=== PATIENT | female | born 1940 | race African-American/Black ===

== ENCOUNTER 2021-02-17 05:05 | Inpatient (IN) | payer OTHER ==
[2021-02-16 15:57] VITALS: BMI 36.9
[2021-02-17] MEDS ORDERED: ACETAMINOPHEN INJECTION 100 ML IVPB ONE (13:51)
[2021-02-17] MEDS ORDERED: DEXMEDETOMIDINE HCL 200 MCG/2 ML IVPB ONE (13:51)
[2021-02-17] MEDS ORDERED: LIDOCAINE 1%/EPI 1:100000 (20 ML MULTI DOSE VIAL) ONE (13:58)
[2021-02-17] MEDS ORDERED: BUPIVACAINE HCL/PF 0.25% (2.5MG/ML) 10 ML VIAL ONE (13:58)
[2021-02-17] MEDS ORDERED: GENTAMICIN SO4 80 MG/2 ML VIAL ONE (14:05)
[2021-02-17] MEDS ORDERED: LIDOCAINE HCL 2% JELLY (5 ML/TUBE) ONE (14:08)
[2021-02-17] MEDS ORDERED: ceFAZolin SODIUM 1 GM VIAL ONE (14:08)
[2021-02-17] MEDS ORDERED: PROPOFOL 20 ML ONE (14:11)
[2021-02-17] MEDS ORDERED: ETOMIDATE 20 MG/10 ML AMPUL IVPUSH ONE (14:11)
[2021-02-17] MEDS ORDERED: SUCCINYLCHOLINE CHLORIDE 200 MG/10 ML SYRINGE ONE (14:14)
[2021-02-17] MEDS ORDERED: ceFAZolin SODIUM 1 GM VIAL IVPB ONE (14:20)
[2021-02-17] MEDS ORDERED: LIDOCAINE 1%/EPI 1:100000 (20 ML MULTI DOSE VIAL) IJ ONE (14:44)
[2021-02-17] MEDS ORDERED: BUPIVACAINE HCL/PF 0.25% (2.5MG/ML) 10 ML VIAL IJ ONE (14:44)
[2021-02-17] MEDS ORDERED: BACITRACIN 15 GM TUBE TOPICAL OINTMENT ONE (15:34)
[2021-02-17] MEDS ORDERED: ONDANSETRON 4 MG/2 ML VIAL IVPUSH PRN (15:58)
[2021-02-17] MEDS ORDERED: LACTATED RINGERS SOLUTION 1,000 ML IV SCH (16:00)
[2021-02-17] MEDS ORDERED: MECLIZINE HCL 25 MG TABLET (FP) PO PRN (16:00)
[2021-02-17] MEDS ORDERED: HYDROmorphone HCl 2 MG/ML VIAL IVPUSH PRN ×2 (16:00)
[2021-02-17] MEDS: FAMOTIDINE 20 MG TABLET PO SCH (22:26)
[2021-02-17] MEDS: ROSUVASTATIN CA 20 MG TABLET (FP) PO SCH (22:26)
[2021-02-17] MEDS: RIVAROXABAN 20 MG TABLET PO SCH (22:26)
[2021-02-17] MEDS: DONEPEZIL HCL 10 MG TABLET (FP) PO SCH (22:26)
[2021-02-17] MEDS: ACETAMINOPHEN 325 MG TABLET (FP) PO PRN (22:27)
[2021-02-17] MEDS: CEFAZOLIN 2 GM in DEXTROSE 5%-WATER - 100 ML IVPB SCH (22:28)
[2021-02-17] MEDS: MONTELUKAST NA 10 MG TABLET PO SCH (22:28)
[2021-02-18] MEDS: oxyCODONE HCL 5 MG TABLET PO PRN ×3 (02:23→20:57)
[2021-02-18] MEDS: CEFAZOLIN 2 GM in DEXTROSE 5%-WATER - 100 ML IVPB SCH ×2 (07:00→14:07)
[2021-02-18] MEDS ORDERED: PROPOFOL 20 ML ONE (07:26)
[2021-02-18] MEDS ORDERED: SUCCINYLCHOLINE CHLORIDE 200 MG/10 ML SYRINGE ONE (07:26)
[2021-02-18] MEDS ORDERED: RIVAROXABAN 20 MG TABLET PO SCH (10:00)
[2021-02-18] MEDS ORDERED: FAMOTIDINE 20 MG TABLET PO SCH (10:00)
[2021-02-18] MEDS: CHOLECALCIFEROL (VIT D3) 1,000 UNIT (25 MCG) TABLET PO SCH (10:29)
[2021-02-18] MEDS: FUROSEMIDE 40 MG TABLET (FP) PO SCH (10:29)
[2021-02-18] MEDS: MULTIVITAMINS (DAILY MVI) TABLET (FP) PO SCH (10:29)
[2021-02-18] MEDS: OXYBUTYNIN CHLORIDE 5 MG TABLET PO SCH (10:30)
[2021-02-18] MEDS: SIMETHICONE 80 MG TAB.CHEW (FP) PO SCH (10:30)
[2021-02-18 10:32] LABS: HEMATOCRIT 36.9 % (32.4-45.2); HEMOGLOBIN 12.3 GM/dL (10.7-15.3); MCH 30.5 pg (25.7-33.7); MCHC 33.4 g/dl (32.0-36.0); MEAN CELL VOLUME 91.5 fl (80-96); MEAN PLT VOLUME 10.5 fl (7.5-11.1); PLATELET COUNT 98 10^3/uL (134-434); RBC 4.03 M/mm3 (3.60-5.2); RDW 13.5 % (11.6-15.6); WHITE BLOOD COUNT 4.9 K/mm3 (4.0-10.0)
[2021-02-18 12:10] LABS: CALCIUM 9.5 mg/dL (8.5-10.1)
[2021-02-18 12:11] LABS: MAGNESIUM 2.2 mg/dL (1.8-2.4)
[2021-02-18 12:14] LABS: CREATININE 0.7 mg/dL (0.55-1.3); PHOSPHOROUS 2.7 mg/dL (2.5-4.9)
[2021-02-18 12:18] LABS: BLOOD UREA NITROGEN 8.4 mg/dL (7-18)
[2021-02-18] MEDS ORDERED: PT OWN MED DRAWER 7, Y5N ONE (13:47)
[2021-02-18] MEDS: NYSTATIN POWDER 100,000 UNITS/GM - 15 GM TOPICAL POWDER TP SCH ×2 (14:19→20:59)
[2021-02-18] MEDS: RIVAROXABAN 20 MG TABLET PO SCH (17:43)
[2021-02-18] MEDS: MONTELUKAST NA 10 MG TABLET PO SCH (20:59)
[2021-02-18] MEDS: DONEPEZIL HCL 10 MG TABLET (FP) PO SCH (20:59)
[2021-02-18] MEDS: ROSUVASTATIN CA 20 MG TABLET (FP) PO SCH (20:59)
[2021-02-18] MEDS: FAMOTIDINE 20 MG TABLET PO SCH (20:59)
[2021-02-19] MEDS: oxyCODONE HCL 5 MG TABLET PO PRN ×2 (06:14→21:12)
[2021-02-19 09:57] LABS: BASO % 0.3 % (0-2.0); EOS % 1.1 % (0-4.5); HEMATOCRIT 37.4 % (32.4-45.2); HEMOGLOBIN 12.5 GM/dL (10.7-15.3); LYMPH % 24.3 % (8-40); MCH 30.5 pg (25.7-33.7); MCHC 33.6 g/dl (32.0-36.0); MEAN CELL VOLUME 90.9 fl (80-96); MEAN PLT VOLUME 10.2 fl (7.5-11.1); NEUT % 64.3 % (42.8-82.8); PLATELET COUNT 99 10^3/uL (134-434); RBC 4.11 M/mm3 (3.60-5.2); RDW 13.4 % (11.6-15.6); WHITE BLOOD COUNT 5.9 K/mm3 (4.0-10.0)
[2021-02-19] MEDS: SIMETHICONE 80 MG TAB.CHEW (FP) PO SCH (10:09)
[2021-02-19] MEDS: MULTIVITAMINS (DAILY MVI) TABLET (FP) PO SCH (10:09)
[2021-02-19] MEDS: FUROSEMIDE 40 MG TABLET (FP) PO SCH (10:09)
[2021-02-19] MEDS: NYSTATIN POWDER 100,000 UNITS/GM - 15 GM TOPICAL POWDER TP SCH ×2 (10:10→21:14)
[2021-02-19] MEDS: CHOLECALCIFEROL (VIT D3) 1,000 UNIT (25 MCG) TABLET PO SCH (10:10)
[2021-02-19] MEDS: OXYBUTYNIN CHLORIDE 5 MG TABLET PO SCH (10:10)
[2021-02-19 10:26] LABS: CALCIUM 9.5 mg/dL (8.5-10.1)
[2021-02-19 10:27] LABS: ALBUMIN 2.7 g/dl (3.4-5.0); BLOOD UREA NITROGEN 12.1 mg/dL (7-18); MAGNESIUM 2.3 mg/dL (1.8-2.4)
[2021-02-19 10:30] LABS: CREATININE 0.6 mg/dL (0.55-1.3)
[2021-02-19 10:31] LABS: BILIRUBIN,TOTAL 0.4 mg/dL (0.2-1); TOT PROT 6.9 g/dl (6.4-8.2)
[2021-02-19] MEDS: RIVAROXABAN 20 MG TABLET PO SCH (17:18)
[2021-02-19] MEDS: FAMOTIDINE 20 MG TABLET PO SCH (21:12)
[2021-02-19] MEDS: MONTELUKAST NA 10 MG TABLET PO SCH (21:12)
[2021-02-19] MEDS: ROSUVASTATIN CA 20 MG TABLET (FP) PO SCH (21:12)
[2021-02-19] MEDS: DONEPEZIL HCL 10 MG TABLET (FP) PO SCH (21:12)
[2021-02-20] MEDS: ACETAMINOPHEN 325 MG TABLET (FP) PO PRN (05:34)
[2021-02-20] MEDS ORDERED: PT OWN MED DRAWER 7, Y5N ONE ×5 (09:25→16:56)
[2021-02-20 09:35] LABS: BASO % 0.3 % (0-2.0); EOS % 0.3 % (0-4.5); HEMATOCRIT 38.4 % (32.4-45.2); MEAN CELL VOLUME 91.2 fl (80-96); MONO % 12.1 % (3.8-10.2); NEUT % 71.3 % (42.8-82.8); PLATELET COUNT 108 10^3/uL (134-434); RBC 4.21 M/mm3 (3.60-5.2); RDW 13.2 % (11.6-15.6)
[2021-02-20] MEDS ORDERED: PIPERACILLIN/TAZOB 3.375 GM 3.375 GM in DEXTROSE 5%-WATER - 50 ML IVPB SCH (10:00)
[2021-02-20] MEDS: CEFAZOLIN 2 GM in DEXTROSE 5%-WATER - 100 ML IVPB SCH ×2 (10:25→18:25)
[2021-02-20] MEDS: OXYBUTYNIN CHLORIDE 5 MG TABLET PO SCH (10:26)
[2021-02-20] MEDS: MULTIVITAMINS (DAILY MVI) TABLET (FP) PO SCH (10:26)
[2021-02-20] MEDS: CHOLECALCIFEROL (VIT D3) 1,000 UNIT (25 MCG) TABLET PO SCH (10:26)
[2021-02-20] MEDS: SIMETHICONE 80 MG TAB.CHEW (FP) PO SCH (10:27)
[2021-02-20] MEDS: FUROSEMIDE 40 MG TABLET (FP) PO SCH (10:27)
[2021-02-20] MEDS: NYSTATIN POWDER 100,000 UNITS/GM - 15 GM TOPICAL POWDER TP SCH ×2 (10:28→21:04)
[2021-02-20 10:29] LABS: CALCIUM 9.7 mg/dL (8.5-10.1)
[2021-02-20 10:30] LABS: ALBUMIN 2.4 g/dl (3.4-5.0); BLOOD UREA NITROGEN 12.7 mg/dL (7-18)
[2021-02-20 10:31] LABS: MAGNESIUM 2.1 mg/dL (1.8-2.4)
[2021-02-20 10:33] LABS: CREATININE 0.7 mg/dL (0.55-1.3)
[2021-02-20 10:35] LABS: BILIRUBIN,TOTAL 0.6 mg/dL (0.2-1); TOT PROT 7.1 g/dl (6.4-8.2)
[2021-02-20] MEDS: oxyCODONE HCL 5 MG TABLET PO PRN ×2 (16:22→22:45)
[2021-02-20] MEDS: RIVAROXABAN 20 MG TABLET PO SCH (18:25)
[2021-02-20] MEDS ORDERED: DEXTROSE 5%-WATER 100 ML IVPB ONE (20:43)
[2021-02-20] MEDS: CEFTRIAXONE 2 GM in DEXTROSE 5%-WATER 2 GM/100 ML BAG IVPB SCH (20:56)
[2021-02-20] MEDS: MONTELUKAST NA 10 MG TABLET PO SCH (21:04)
[2021-02-20] MEDS: FAMOTIDINE 20 MG TABLET PO SCH (21:04)
[2021-02-20] MEDS: ROSUVASTATIN CA 20 MG TABLET (FP) PO SCH (21:04)
[2021-02-20] MEDS: DONEPEZIL HCL 10 MG TABLET (FP) PO SCH (21:04)
[2021-02-21] MEDS ORDERED: DEXTROSE 5%-WATER 100 ML IVPB ONE (09:19)
[2021-02-21] MEDS: CEFTRIAXONE 2 GM in DEXTROSE 5%-WATER 2 GM/100 ML BAG IVPB SCH (09:57)
[2021-02-21 10:19] LABS: BASO % 0.1 % (0-2.0); EOS % 0.2 % (0-4.5); HEMATOCRIT 36.1 % (32.4-45.2); HEMOGLOBIN 12.2 GM/dL (10.7-15.3); LYMPH % 16.2 % (8-40); MCH 30.4 pg (25.7-33.7); MCHC 33.9 g/dl (32.0-36.0); MEAN CELL VOLUME 89.7 fl (80-96); MEAN PLT VOLUME 9.8 fl (7.5-11.1); MONO % 14.9 % (3.8-10.2); NEUT % 68.6 % (42.8-82.8); PLATELET COUNT 115 10^3/uL (134-434); RBC 4.03 M/mm3 (3.60-5.2); RDW 13.2 % (11.6-15.6); WHITE BLOOD COUNT 7.4 K/mm3 (4.0-10.0)
[2021-02-21 10:46] LABS: CALCIUM 9.9 mg/dL (8.5-10.1)
[2021-02-21 10:47] LABS: ALBUMIN 2.5 g/dl (3.4-5.0); BLOOD UREA NITROGEN 18.4 mg/dL (7-18); MAGNESIUM 2.3 mg/dL (1.8-2.4)
[2021-02-21 10:50] LABS: CREATININE 0.8 mg/dL (0.55-1.3)
[2021-02-21 10:51] LABS: TOT PROT 7.2 g/dl (6.4-8.2)
[2021-02-21 10:52] LABS: BILIRUBIN,TOTAL 0.5 mg/dL (0.2-1)
[2021-02-21] MEDS: FUROSEMIDE 40 MG TABLET (FP) PO SCH (11:14)
[2021-02-21] MEDS: CHOLECALCIFEROL (VIT D3) 1,000 UNIT (25 MCG) TABLET PO SCH (11:14)
[2021-02-21] MEDS: OXYBUTYNIN CHLORIDE 5 MG TABLET PO SCH (11:15)
[2021-02-21] MEDS: SIMETHICONE 80 MG TAB.CHEW (FP) PO SCH (11:15)
[2021-02-21] MEDS: NYSTATIN POWDER 100,000 UNITS/GM - 15 GM TOPICAL POWDER TP SCH ×2 (11:15→22:42)
[2021-02-21] MEDS: MULTIVITAMINS (DAILY MVI) TABLET (FP) PO SCH (11:15)
[2021-02-21] MEDS: ACETAMINOPHEN 500 MG TABLET (FP) PO SCH ×2 (17:23→22:43)
[2021-02-21] MEDS: RIVAROXABAN 20 MG TABLET PO SCH (17:24)
[2021-02-21] MEDS: DONEPEZIL HCL 10 MG TABLET (FP) PO SCH (22:42)
[2021-02-21] MEDS: POLYETHYLENE GLYCOL (HEALTHYLAX) 3350 17 GM PACKET PO SCH (22:42)
[2021-02-21] MEDS: ROSUVASTATIN CA 20 MG TABLET (FP) PO SCH (22:42)
[2021-02-21] MEDS: DOCUSATE SODIUM 100 MG CAPSULE (FP) PO SCH (22:42)
[2021-02-21] MEDS: MONTELUKAST NA 10 MG TABLET PO SCH (22:43)
[2021-02-21] MEDS: FAMOTIDINE 20 MG TABLET PO SCH (22:43)
[2021-02-22] MEDS: oxyCODONE HCL 5 MG TABLET PO PRN ×2 (00:39→19:45)
[2021-02-22] MEDS: ACETAMINOPHEN 500 MG TABLET (FP) PO SCH ×3 (05:47→22:28)
[2021-02-22 09:12] LABS: BASO % 0.7 % (0-2.0); EOS % 1.2 % (0-4.5); HEMATOCRIT 35.7 % (32.4-45.2); LYMPH % 22.2 % (8-40); MCH 30.4 pg (25.7-33.7); MCHC 33.7 g/dl (32.0-36.0); MEAN CELL VOLUME 90.1 fl (80-96); MONO % 13.5 % (3.8-10.2); NEUT % 62.4 % (42.8-82.8); PLATELET COUNT 135 10^3/uL (134-434); RBC 3.96 M/mm3 (3.60-5.2); RDW 13.4 % (11.6-15.6); WHITE BLOOD COUNT 5.8 K/mm3 (4.0-10.0)
[2021-02-22 09:38] LABS: ALBUMIN 2.3 g/dl (3.4-5.0); MAGNESIUM 2.4 mg/dL (1.8-2.4)
[2021-02-22 09:41] LABS: CREATININE 0.7 mg/dL (0.55-1.3)
[2021-02-22 09:42] LABS: BILIRUBIN,TOTAL 0.5 mg/dL (0.2-1); TOT PROT 7.3 g/dl (6.4-8.2)
[2021-02-22] MEDS: POLYETHYLENE GLYCOL (HEALTHYLAX) 3350 17 GM PACKET PO SCH ×2 (11:00→22:29)
[2021-02-22] MEDS ORDERED: DEXTROSE 5%-WATER 100 ML IVPB ONE (11:20)
[2021-02-22] MEDS: CEFTRIAXONE 2 GM in DEXTROSE 5%-WATER 2 GM/100 ML BAG IVPB SCH (12:13)
[2021-02-22] MEDS: FUROSEMIDE 40 MG TABLET (FP) PO SCH (12:14)
[2021-02-22] MEDS: OXYBUTYNIN CHLORIDE 5 MG TABLET PO SCH (12:15)
[2021-02-22] MEDS: SIMETHICONE 80 MG TAB.CHEW (FP) PO SCH (12:15)
[2021-02-22] MEDS: MULTIVITAMINS (DAILY MVI) TABLET (FP) PO SCH (12:15)
[2021-02-22] MEDS: CHOLECALCIFEROL (VIT D3) 1,000 UNIT (25 MCG) TABLET PO SCH (12:15)
[2021-02-22] MEDS: NYSTATIN POWDER 100,000 UNITS/GM - 15 GM TOPICAL POWDER TP SCH ×2 (12:17→22:30)
[2021-02-22] MEDS: RIVAROXABAN 20 MG TABLET PO SCH (17:40)
[2021-02-22] MEDS: MONTELUKAST NA 10 MG TABLET PO SCH (22:28)
[2021-02-22] MEDS: DONEPEZIL HCL 10 MG TABLET (FP) PO SCH (22:29)
[2021-02-22] MEDS: DOCUSATE SODIUM 100 MG CAPSULE (FP) PO SCH (22:29)
[2021-02-22] MEDS: ROSUVASTATIN CA 20 MG TABLET (FP) PO SCH (22:29)
[2021-02-22] MEDS: FAMOTIDINE 20 MG TABLET PO SCH (22:29)
[2021-02-23] MEDS: NYSTATIN POWDER 100,000 UNITS/GM - 15 GM TOPICAL POWDER TP SCH ×5 (00:37→21:13)
[2021-02-23] MEDS: ACETAMINOPHEN 500 MG TABLET (FP) PO SCH ×3 (06:03→21:12)
[2021-02-23] MEDS ORDERED: SENNOSIDES 8.6MG TABLET (FP) PO ONE (06:20)
[2021-02-23] MEDS ORDERED: DEXTROSE 5%-WATER 100 ML IVPB ONE (09:50)
[2021-02-23] MEDS: FUROSEMIDE 40 MG TABLET (FP) PO SCH (12:00)
[2021-02-23] MEDS: OXYBUTYNIN CHLORIDE 5 MG TABLET PO SCH (12:00)
[2021-02-23] MEDS: MULTIVITAMINS (DAILY MVI) TABLET (FP) PO SCH (12:00)
[2021-02-23] MEDS: CHOLECALCIFEROL (VIT D3) 1,000 UNIT (25 MCG) TABLET PO SCH (12:00)
[2021-02-23] MEDS: POLYETHYLENE GLYCOL (HEALTHYLAX) 3350 17 GM PACKET PO SCH ×2 (12:01→21:13)
[2021-02-23] MEDS: SIMETHICONE 80 MG TAB.CHEW (FP) PO SCH (12:01)
[2021-02-23] MEDS: CEFTRIAXONE 2 GM in DEXTROSE 5%-WATER 2 GM/100 ML BAG IVPB SCH (12:02)
[2021-02-23] MEDS ORDERED: BISACODYL 10 MG SUPP.RECT PR ONE (12:29)
[2021-02-23] MEDS: RIVAROXABAN 20 MG TABLET PO SCH (17:36)
[2021-02-23] MEDS: DONEPEZIL HCL 10 MG TABLET (FP) PO SCH (21:11)
[2021-02-23] MEDS: DOCUSATE SODIUM 100 MG CAPSULE (FP) PO SCH (21:11)
[2021-02-23] MEDS: FAMOTIDINE 20 MG TABLET PO SCH (21:11)
[2021-02-23] MEDS: MONTELUKAST NA 10 MG TABLET PO SCH (21:12)
[2021-02-23] MEDS: ROSUVASTATIN CA 20 MG TABLET (FP) PO SCH (21:12)
[2021-02-23 23:30] VITALS: BP 146/66; PULSE 76; TEMP 98.3
== END 2021-02-23 23:30 | disposition home or self-care (01) | DRG 464 ==
LOC: JASUSAT 05:05 → J2C 15:52 → J8W 17:26
PROVIDERS: ADMIT Plastic Surgery; ATTEND Nurse Practitioner Family
PROC: 0QBK0ZX Excision of Left Fibula, Open Approach, Diagnostic (ICD-10-PCS; 2021-02-17)
PROC: 0HBJXZZ Excision of Left Upper Leg Skin, External Approach (ICD-10-PCS; 2021-02-17)
PROC: 0HRLX74 Replacement of Left Lower Leg Skin with Autologous Tissue Substitute, Partial Thickness, External Approach (ICD-10-PCS; principal; 2021-02-17 13:00)
PROC: 05HB33Z Insertion of Infusion Device into Right Basilic Vein, Percutaneous Approach (ICD-10-PCS; 2021-02-22)
PROC: B51MZZA Fluoroscopy of Right Upper Extremity Veins, Guidance (ICD-10-PCS; 2021-02-22)
DX: M86.9 Osteomyelitis, unspecified (principal); L97.929 Non-pressure chronic ulcer of unspecified part of left lower leg with unspecified severity; I73.9 Peripheral vascular disease, unspecified; G47.33 Obstructive sleep apnea (adult) (pediatric); I48.91 Unspecified atrial fibrillation; E66.9 Obesity, unspecified; Z68.36 Body mass index [BMI] 36.0-36.9, adult; I10 Essential (primary) hypertension; E21.3 Hyperparathyroidism, unspecified
CPT/HCPCS: 36415; 36569; 80048; 80053; 83735; 84100; 85025; 85027; 86140; 87070; 87075; 87102; 87186; 87205; 87210; 88304-TC; 88311-TC; 94760; 97116-GP; 97161-GP; J0131

== ENCOUNTER 2022-09-06 12:05 | Inpatient (IN) | payer OTHER ==
[2022-09-06] MEDS ORDERED: VANCOMYCIN 1 GM in D5W (PRE-DOCKED) 1,000 MG/250 ML (RESTRICTED TO ID ONLY IVPB ONE (15:35)
[2022-09-06] MEDS ORDERED: PIPERACILLIN/TAZOB 3.375 GM 3.375 GM in DEXTROSE 5%-WATER - 50 ML IVPB ONE (15:35)
[2022-09-06 16:18] LABS: BASO % 0.3 % (0-2.0); EOS % 3.9 % (0-4.5); HEMATOCRIT 39.8 % (32.4-45.2); HEMOGLOBIN 13.3 GM/dL (10.7-15.3); LYMPH % 28.9 % (8-40); MCH 30.4 pg (25.7-33.7); MCHC 33.4 g/dl (32.0-36.0); MEAN PLT VOLUME 9.4 fl (7.5-11.1); NEUT % 59.9 % (42.8-82.8); PLATELET COUNT 170 10^3/uL (134-434); RBC 4.37 M/mm3 (3.60-5.2); RDW 13.2 % (11.6-15.6); WHITE BLOOD COUNT 5.7 K/mm3 (4.0-10.0)
[2022-09-06 16:26] LABS: INR 1.64 (0.83-1.09); PROTHROMBIN TIME (PATIENT) 18.9 SEC (9.7-13.0)
[2022-09-06 16:28] LABS: ACTIVATED PTT 47.2 SECONDS (25.2-36.5)
[2022-09-06 16:33] LABS: POTASSIUM 3.9 mmol/L (3.5-5.1)
[2022-09-06 16:35] LABS: CALCIUM 10.2 mg/dL (8.5-10.1)
[2022-09-06 16:36] LABS: ALBUMIN 3.2 g/dl (3.4-5.0); BLOOD UREA NITROGEN 9.3 mg/dL (7-18)
[2022-09-06 16:39] LABS: CREATININE 0.8 mg/dL (0.55-1.3)
[2022-09-06 16:40] LABS: BILIRUBIN,TOTAL 0.4 mg/dL (0.2-1)
[2022-09-06 16:41] LABS: TOT PROT 8.9 g/dl (6.4-8.2)
[2022-09-06] MEDS ORDERED: PIPERACILLIN/TAZOB 3.375 GM 3.375 GM/50 ML BAG IVPB ONE (16:43)
[2022-09-06 17:51] LABS: ERYTHROCYTE SEDIMENTATION RATE 74 mm/hr (0-30)
[2022-09-06] MEDS ORDERED: VANCOMYCIN/WATER FOR INJ (PEG) 1,000 MG/200 ML BAG IVPB ONE (17:54)
[2022-09-06] MEDS ORDERED: MECLIZINE HCL 25 MG TABLET (FP) PO PRN (17:58)
[2022-09-06] MEDS ORDERED: PIPERACILLIN/TAZOB 3.375 GM 3.375 GM in DEXTROSE 5%-WATER - 50 ML IVPB SCH (18:00)
[2022-09-06] MEDS: DONEPEZIL HCL 5 MG TABLET (FP) PO SCH (22:55)
[2022-09-06] MEDS: MONTELUKAST NA 10 MG TABLET PO SCH (22:56)
[2022-09-06] MEDS: FAMOTIDINE 20 MG TABLET PO PRN (23:02)
[2022-09-07] MEDS: PIPERACILLIN/TAZOB 3.375 GM 3.375 GM in DEXTROSE 5%-WATER - 50 ML IVPB SCH ×4 (02:00→17:45)
[2022-09-07 04:27] VITALS: RESP 18; BMI 33.9
[2022-09-07 09:27] LABS: BASO % 0.5 % (0-2.0); EOS % 5.2 % (0-4.5); HEMATOCRIT 37.5 % (32.4-45.2); HEMOGLOBIN 12.1 GM/dL (10.7-15.3); LYMPH % 27.2 % (8-40); MCH 29.9 pg (25.7-33.7); MCHC 32.3 g/dl (32.0-36.0); MEAN CELL VOLUME 92.7 fl (80-96); MEAN PLT VOLUME 10.1 fl (7.5-11.1); MONO % 9.8 % (3.8-10.2); NEUT % 57.3 % (42.8-82.8); PLATELET COUNT 149 10^3/uL (134-434); RBC 4.04 M/mm3 (3.60-5.2); WHITE BLOOD COUNT 5.1 K/mm3 (4.0-10.0)
[2022-09-07 09:51] LABS: POTASSIUM 5.2 mmol/L (3.5-5.1)
[2022-09-07 09:54] LABS: CALCIUM 9.8 mg/dL (8.5-10.1)
[2022-09-07 09:55] LABS: ALBUMIN 2.7 g/dl (3.4-5.0); BLOOD UREA NITROGEN 12.6 mg/dL (7-18); MAGNESIUM 2.1 mg/dL (1.8-2.4)
[2022-09-07 09:58] LABS: CREATININE 0.6 mg/dL (0.55-1.3)
[2022-09-07 09:59] LABS: TOT PROT 7.9 g/dl (6.4-8.2)
[2022-09-07] MEDS ORDERED: RIVAROXABAN 20 MG TABLET PO SCH (10:00)
[2022-09-07] MEDS ORDERED: ENOXAPARIN NA (PORCINE) 40 MG/0.4 ML DISP.SYRIN SQ SCH (10:00)
[2022-09-07 10:04] LABS: BILIRUBIN,TOTAL 0.6 mg/dL (0.2-1)
[2022-09-07] MEDS: FUROSEMIDE 40 MG TABLET (FP) PO SCH (10:47)
[2022-09-07] MEDS: CINACALCET HCL 30 MG TAB (FP) PO SCH (10:48)
[2022-09-07] MEDS: FAMOTIDINE 20 MG TABLET PO PRN (10:49)
[2022-09-07] MEDS: COLLAGENASE CLOSTRIDIUM HIST. 30 GRAMS TUBE TP SCH (17:45)
[2022-09-07] MEDS: MINERAL OIL/PET HY-PHL TOPICAL OINTMENT 454 GM JAR TP SCH (17:45)
[2022-09-07] MEDS: RIVAROXABAN 20 MG TABLET PO SCH (17:45)
[2022-09-07] MEDS: MONTELUKAST NA 10 MG TABLET PO SCH (21:58)
[2022-09-07] MEDS: ROSUVASTATIN CA 20 MG TABLET PO SCH (21:58)
[2022-09-07] MEDS: DONEPEZIL HCL 5 MG TABLET (FP) PO SCH (21:58)
[2022-09-07] MEDS: FAMOTIDINE 20 MG TABLET PO SCH (21:58)
[2022-09-08] MEDS: PIPERACILLIN/TAZOB 3.375 GM 3.375 GM in DEXTROSE 5%-WATER - 50 ML IVPB SCH ×3 (01:48→17:36)
[2022-09-08 09:00] LABS: BASO % 0.8 % (0-2.0); EOS % 6.8 % (0-4.5); HEMATOCRIT 37.2 % (32.4-45.2); HEMOGLOBIN 12.1 GM/dL (10.7-15.3); LYMPH % 32.3 % (8-40); MCH 30.1 pg (25.7-33.7); MCHC 32.6 g/dl (32.0-36.0); MEAN CELL VOLUME 92.3 fl (80-96); MEAN PLT VOLUME 9.7 fl (7.5-11.1); NEUT % 49.1 % (42.8-82.8); PLATELET COUNT 139 10^3/uL (134-434); RBC 4.03 M/mm3 (3.60-5.2); WHITE BLOOD COUNT 4.4 K/mm3 (4.0-10.0)
[2022-09-08 09:15] LABS: POTASSIUM 4.2 mmol/L (3.5-5.1)
[2022-09-08] MEDS: FUROSEMIDE 40 MG TABLET (FP) PO SCH (09:19)
[2022-09-08] MEDS: FAMOTIDINE 20 MG TABLET PO SCH ×2 (09:19→22:31)
[2022-09-08] MEDS: CINACALCET HCL 30 MG TAB (FP) PO SCH (09:19)
[2022-09-08] MEDS: MINERAL OIL/PET HY-PHL TOPICAL OINTMENT 454 GM JAR TP SCH (09:25)
[2022-09-08 09:26] LABS: CALCIUM 9.9 mg/dL (8.5-10.1)
[2022-09-08 09:27] LABS: ALBUMIN 2.6 g/dl (3.4-5.0); BLOOD UREA NITROGEN 15.8 mg/dL (7-18)
[2022-09-08] MEDS: COLLAGENASE CLOSTRIDIUM HIST. 30 GRAMS TUBE TP SCH (09:27)
[2022-09-08 09:28] LABS: CREATININE 0.8 mg/dL (0.55-1.3)
[2022-09-08 09:30] LABS: BILIRUBIN,TOTAL 0.4 mg/dL (0.2-1); TOT PROT 7.6 g/dl (6.4-8.2)
[2022-09-08 09:40] LABS: ERYTHROCYTE SEDIMENTATION RATE 83 mm/hr (0-30)
[2022-09-08] MEDS: RIVAROXABAN 20 MG TABLET PO SCH (17:36)
[2022-09-08] MEDS ORDERED: ACETAMINOPHEN 500 MG TABLET (FP) PO ONE (20:28)
[2022-09-08] MEDS: MONTELUKAST NA 10 MG TABLET PO SCH (22:30)
[2022-09-08] MEDS: DONEPEZIL HCL 5 MG TABLET (FP) PO SCH (22:30)
[2022-09-08] MEDS: ROSUVASTATIN CA 20 MG TABLET PO SCH (22:31)
[2022-09-09] MEDS: PIPERACILLIN/TAZOB 3.375 GM 3.375 GM in DEXTROSE 5%-WATER - 50 ML IVPB SCH ×3 (01:46→18:51)
[2022-09-09] MEDS: FAMOTIDINE 20 MG TABLET PO SCH ×2 (09:19→21:54)
[2022-09-09] MEDS: FUROSEMIDE 40 MG TABLET (FP) PO SCH (09:19)
[2022-09-09] MEDS: CINACALCET HCL 30 MG TAB (FP) PO SCH (09:19)
[2022-09-09] MEDS: MINERAL OIL/PET HY-PHL TOPICAL OINTMENT 454 GM JAR TP SCH (09:25)
[2022-09-09] MEDS: COLLAGENASE CLOSTRIDIUM HIST. 30 GRAMS TUBE TP SCH ×3 (11:22→20:20)
[2022-09-09] MEDS: RIVAROXABAN 20 MG TABLET PO SCH (18:49)
[2022-09-09 19:19] LABS: BASO % 0.4 % (0-2.0); EOS % 6.2 % (0-4.5); HEMATOCRIT 41.5 % (32.4-45.2); HEMOGLOBIN 13.2 GM/dL (10.7-15.3); LYMPH % 18.8 % (8-40); MCH 29.8 pg (25.7-33.7); MCHC 31.8 g/dl (32.0-36.0); MEAN CELL VOLUME 93.7 fl (80-96); MEAN PLT VOLUME 10.1 fl (7.5-11.1); MONO % 5.9 % (3.8-10.2); NEUT % 68.7 % (42.8-82.8); PLATELET COUNT 140 10^3/uL (134-434); RBC 4.43 M/mm3 (3.60-5.2); RDW 13.2 % (11.6-15.6); WHITE BLOOD COUNT 6.7 K/mm3 (4.0-10.0)
[2022-09-09 19:34] LABS: POTASSIUM 3.8 mmol/L (3.5-5.1)
[2022-09-09 19:36] LABS: CALCIUM 9.9 mg/dL (8.5-10.1)
[2022-09-09 19:37] LABS: BLOOD UREA NITROGEN 15.8 mg/dL (7-18)
[2022-09-09 19:42] LABS: BILIRUBIN,TOTAL 0.4 mg/dL (0.2-1); TOT PROT 8.7 g/dl (6.4-8.2)
[2022-09-09] MEDS: MONTELUKAST NA 10 MG TABLET PO SCH (21:54)
[2022-09-09] MEDS: DONEPEZIL HCL 5 MG TABLET (FP) PO SCH (21:54)
[2022-09-09] MEDS: ROSUVASTATIN CA 20 MG TABLET PO SCH (21:54)
[2022-09-10] MEDS: PIPERACILLIN/TAZOB 3.375 GM 3.375 GM in DEXTROSE 5%-WATER - 50 ML IVPB SCH ×2 (01:33→10:19)
[2022-09-10 07:52] VITALS: BP 117/77; PULSE 91; TEMP 97.7
[2022-09-10 08:37] LABS: BASO % 0.4 % (0-2.0); EOS % 9.3 % (0-4.5); HEMATOCRIT 40.5 % (32.4-45.2); HEMOGLOBIN 13.2 GM/dL (10.7-15.3); LYMPH % 20.1 % (8-40); MCH 30.5 pg (25.7-33.7); MCHC 32.7 g/dl (32.0-36.0); MEAN CELL VOLUME 93.3 fl (80-96); MEAN PLT VOLUME 9.8 fl (7.5-11.1); MONO % 9.7 % (3.8-10.2); NEUT % 60.5 % (42.8-82.8); PLATELET COUNT 140 10^3/uL (134-434); RBC 4.34 M/mm3 (3.60-5.2); RDW 13.2 % (11.6-15.6); WHITE BLOOD COUNT 5.5 K/mm3 (4.0-10.0)
[2022-09-10 09:16] LABS: POTASSIUM 4.1 mmol/L (3.5-5.1)
[2022-09-10 09:23] LABS: CALCIUM 9.9 mg/dL (8.5-10.1)
[2022-09-10 09:24] LABS: ALBUMIN 2.9 g/dl (3.4-5.0); BLOOD UREA NITROGEN 13.1 mg/dL (7-18); MAGNESIUM 2.1 mg/dL (1.8-2.4)
[2022-09-10 09:27] LABS: CREATININE 0.9 mg/dL (0.55-1.3)
[2022-09-10 09:28] LABS: BILIRUBIN,TOTAL 0.6 mg/dL (0.2-1); TOT PROT 8.4 g/dl (6.4-8.2)
[2022-09-10] MEDS: FAMOTIDINE 20 MG TABLET PO SCH (10:19)
[2022-09-10] MEDS: FUROSEMIDE 40 MG TABLET (FP) PO SCH (10:19)
[2022-09-10] MEDS: COLLAGENASE CLOSTRIDIUM HIST. 30 GRAMS TUBE TP SCH (10:20)
[2022-09-10] MEDS: CINACALCET HCL 30 MG TAB (FP) PO SCH (10:20)
[2022-09-10] MEDS: MINERAL OIL/PET HY-PHL TOPICAL OINTMENT 454 GM JAR TP SCH (10:21)
== END 2022-09-10 13:24 | disposition home or self-care (01) | DRG 541 ==
LOC: JER 12:05 → JERBED 15:38 → J8W 20:45
PROVIDERS: ADMIT Internal Medicine; ATTEND Nurse Practitioner Family
PROC: 02HV33Z Insertion of Infusion Device into Superior Vena Cava, Percutaneous Approach (ICD-10-PCS; principal; 2022-09-09)
PROC: B548ZZA Ultrasonography of Superior Vena Cava, Guidance (ICD-10-PCS; 2022-09-09)
DX: M86.9 Osteomyelitis, unspecified (principal); I11.0 Hypertensive heart disease with heart failure; I73.9 Peripheral vascular disease, unspecified; E78.5 Hyperlipidemia, unspecified; I48.91 Unspecified atrial fibrillation; S81.802A Unspecified open wound, left lower leg, initial encounter; G30.9 Alzheimer's disease, unspecified; I50.9 Heart failure, unspecified; F02.80 Dementia in other diseases classified elsewhere, unspecified severity, without behavioral disturbance, psychotic disturbance, mood disturbance, and anxiety; E21.3 Hyperparathyroidism, unspecified; X58.XXXA Exposure to other specified factors, initial encounter; Y93.89 Activity, other specified; Y92.9 Unspecified place or not applicable; Y99.9 Unspecified external cause status
CPT/HCPCS: 36415; 36569; 80053; 83735; 84100; 85025; 85610; 85651; 85730; 86140; 86850; 86900; 86901; 87040; 93005; 93010; 97116-GP; 97162-GP; 99285-25; G0463-25

== ENCOUNTER 2023-07-04 12:53 | Inpatient (IN) | payer OTHER ==
[2023-07-04 13:01] VITALS: BMI 35.2
[2023-07-04 15:31] LABS: BASO % 0.2 % (0-2.0); EOS % 0.5 % (0-4.5); HEMATOCRIT 36.1 % (32.4-45.2); LYMPH % 25.7 % (8-40); MCH 30.6 pg (25.7-33.7); MCHC 33.3 g/dl (32.0-36.0); MEAN CELL VOLUME 91.9 fl (80-96); MEAN PLT VOLUME 9.9 fl (7.5-11.1); NEUT % 65.6 % (42.8-82.8); PLATELET COUNT 134 10^3/uL (134-434); RBC 3.93 M/mm3 (3.60-5.2); WHITE BLOOD COUNT 5.6 K/mm3 (4.0-10.0)
[2023-07-04 15:32] LABS: INR 1.75 (0.83-1.09); PROTHROMBIN TIME (PATIENT) 20.2 SEC (9.7-13.0)
[2023-07-04 15:35] LABS: ACTIVATED PTT 45.5 SECONDS (25.2-36.5)
[2023-07-04 16:01] LABS: CALCIUM 9.6 mg/dL (8.5-10.1)
[2023-07-04 16:02] LABS: ALBUMIN 3.2 g/dl (3.4-5.0); BLOOD UREA NITROGEN 11.9 mg/dL (7-18)
[2023-07-04 16:05] LABS: CREATININE 0.8 mg/dL (0.55-1.3)
[2023-07-04 16:06] LABS: BILIRUBIN,TOTAL 0.5 mg/dL (0.2-1); TOT PROT 8.1 g/dl (6.4-8.2)
[2023-07-04 16:07] LABS: ERYTHROCYTE SEDIMENTATION RATE 87 mm/hr (0-30)
[2023-07-04] MEDS: PIPERACILLIN/TAZOB 3.375 GM 3.375 GM in DEXTROSE 5%-WATER - 50 ML IVPB SCH (18:07)
[2023-07-04] MEDS: RIVAROXABAN 20 MG TABLET PO SCH (20:42)
[2023-07-04] MEDS ORDERED: FAMOTIDINE 20 MG TABLET ONE (22:17)
[2023-07-04] MEDS: FAMOTIDINE 20 MG TABLET PO SCH (22:27)
[2023-07-05 08:33] LABS: HEMOGLOBIN 11.2 GM/dL (10.7-15.3); MCH 30.2 pg (25.7-33.7); MCHC 32.8 g/dl (32.0-36.0); MEAN CELL VOLUME 91.9 fl (80-96); MEAN PLT VOLUME 9.5 fl (7.5-11.1); PLATELET COUNT 130 10^3/uL (134-434); RBC 3.69 M/mm3 (3.60-5.2); RDW 13.7 % (11.6-15.6); WHITE BLOOD COUNT 5.3 K/mm3 (4.0-10.0)
[2023-07-05 08:52] LABS: POTASSIUM 4.4 mmol/L (3.5-5.1)
[2023-07-05 09:01] LABS: CALCIUM 9.7 mg/dL (8.5-10.1)
[2023-07-05 09:02] LABS: ALBUMIN 2.6 g/dl (3.4-5.0); BLOOD UREA NITROGEN 10.4 mg/dL (7-18); MAGNESIUM 2.1 mg/dL (1.8-2.4)
[2023-07-05 09:05] LABS: CREATININE 0.7 mg/dL (0.55-1.3); PHOSPHOROUS 3.4 mg/dL (2.5-4.9)
[2023-07-05 09:06] LABS: BILIRUBIN,TOTAL 0.6 mg/dL (0.2-1)
[2023-07-05 09:07] LABS: TOT PROT 7.3 g/dl (6.4-8.2)
[2023-07-05] MEDS: ACETAMINOPHEN 500 MG TABLET (FP) PO PRN (19:45)
[2023-07-05] MEDS ORDERED: BACITRACIN ZINC 15 GM TUBE TOPICAL OINTMENT TP SCH (22:00)
[2023-07-06 08:16] LABS: INR 1.39 (0.83-1.09); PROTHROMBIN TIME (PATIENT) 16.1 SEC (9.7-13.0)
[2023-07-06 08:17] LABS: BASO % 0.5 % (0-2.0); HEMATOCRIT 35.8 % (32.4-45.2); HEMOGLOBIN 11.9 GM/dL (10.7-15.3); LYMPH % 20.7 % (8-40); MCH 30.6 pg (25.7-33.7); MCHC 33.4 g/dl (32.0-36.0); MEAN CELL VOLUME 91.7 fl (80-96); MEAN PLT VOLUME 9.6 fl (7.5-11.1); MONO % 11.3 % (3.8-10.2); NEUT % 65.5 % (42.8-82.8); PLATELET COUNT 133 10^3/uL (134-434); RDW 13.9 % (11.6-15.6); WHITE BLOOD COUNT 4.9 K/mm3 (4.0-10.0)
[2023-07-06 08:22] LABS: POTASSIUM 4.3 mmol/L (3.5-5.1)
[2023-07-06 08:47] LABS: ALBUMIN 2.7 g/dl (3.4-5.0); BLOOD UREA NITROGEN 9.6 mg/dL (7-18); CALCIUM 9.9 mg/dL (8.5-10.1); MAGNESIUM 2.3 mg/dL (1.8-2.4)
[2023-07-06 08:50] LABS: CREATININE 0.8 mg/dL (0.55-1.3)
[2023-07-06 08:51] LABS: BILIRUBIN,TOTAL 0.8 mg/dL (0.2-1); TOT PROT 7.5 g/dl (6.4-8.2)
[2023-07-06] MEDS: ENOXAPARIN NA (PORCINE) 100 MG/1 ML DISP.SYRIN SQ SCH (09:46)
[2023-07-06] MEDS: CINACALCET HCL 30 MG TAB (FP) PO SCH (18:26)
[2023-07-06] MEDS: BACITRACIN ZINC 15 GM TUBE TOPICAL OINTMENT TP SCH (18:37)
[2023-07-06] MEDS ORDERED: ENOXAPARIN NA (PORCINE) 100 MG/1 ML DISP.SYRIN SQ SCH (22:00)
[2023-07-07 10:03] LABS: BASO % 0.6 % (0-2.0); EOS % 3.3 % (0-4.5); HEMATOCRIT 36.6 % (32.4-45.2); HEMOGLOBIN 12.2 GM/dL (10.7-15.3); LYMPH % 23.7 % (8-40); MCH 30.4 pg (25.7-33.7); MCHC 33.2 g/dl (32.0-36.0); MEAN CELL VOLUME 91.5 fl (80-96); MEAN PLT VOLUME 9.5 fl (7.5-11.1); MONO % 12.7 % (3.8-10.2); NEUT % 59.7 % (42.8-82.8); PLATELET COUNT 146 10^3/uL (134-434); RBC 4.01 M/mm3 (3.60-5.2); WHITE BLOOD COUNT 3.9 K/mm3 (4.0-10.0)
[2023-07-07 10:18] LABS: POTASSIUM 4.4 mmol/L (3.5-5.1)
[2023-07-07 10:21] LABS: CALCIUM 9.4 mg/dL (8.5-10.1)
[2023-07-07 10:22] LABS: ALBUMIN 2.6 g/dl (3.4-5.0); BLOOD UREA NITROGEN 14.9 mg/dL (7-18)
[2023-07-07 10:23] LABS: MAGNESIUM 2.1 mg/dL (1.8-2.4)
[2023-07-07 10:25] LABS: CREATININE 0.9 mg/dL (0.55-1.3)
[2023-07-07 10:26] LABS: BILIRUBIN,TOTAL 0.5 mg/dL (0.2-1); TOT PROT 7.6 g/dl (6.4-8.2)
[2023-07-07] MEDS ORDERED: GENTAMICIN SO4 80 MG/2 ML VIAL ONE (12:29)
[2023-07-07] MEDS ORDERED: LIDOCAINE 1%/EPI 1:100000 (20 ML MULTI DOSE VIAL) ONE (12:29)
[2023-07-07] MEDS ORDERED: ETOMIDATE 20 MG/10 ML VIAL IVPUSH ONE (13:51)
[2023-07-07] MEDS ORDERED: PROPOFOL 20 ML ONE (13:51)
[2023-07-07] MEDS ORDERED: FENTANYL CITRATE/PF 50 MCG/ML VIAL ONE (13:51)
[2023-07-07] MEDS ORDERED: MIDAZOLAM HCL 2 MG/2 ML SINGLE DOSE VIAL ONE (13:54)
[2023-07-08] MEDS: PIPERACILLIN/TAZOB 3.375 GM 3.375 GM in DEXTROSE 5%-WATER - 50 ML IVPB SCH (09:53)
[2023-07-08] MEDS: CINACALCET HCL 30 MG TAB (FP) PO SCH (09:53)
[2023-07-08] MEDS: ENOXAPARIN NA (PORCINE) 100 MG/1 ML DISP.SYRIN SQ SCH (09:53)
[2023-07-08] MEDS: FAMOTIDINE 20 MG TABLET PO SCH (09:53)
[2023-07-08] MEDS: BACITRACIN ZINC 15 GM TUBE TOPICAL OINTMENT TP SCH (09:53)
[2023-07-08 10:19] LABS: BASO % 0.7 % (0-2.0); EOS % 3.8 % (0-4.5); HEMATOCRIT 35.4 % (32.4-45.2); HEMOGLOBIN 11.3 GM/dL (10.7-15.3); LYMPH % 26.9 % (8-40); MCH 29.6 pg (25.7-33.7); MEAN CELL VOLUME 92.4 fl (80-96); MEAN PLT VOLUME 9.5 fl (7.5-11.1); MONO % 13.7 % (3.8-10.2); NEUT % 54.9 % (42.8-82.8); PLATELET COUNT 156 10^3/uL (134-434); RBC 3.83 M/mm3 (3.60-5.2); RDW 13.5 % (11.6-15.6); WHITE BLOOD COUNT 3.4 K/mm3 (4.0-10.0)
[2023-07-08 10:34] LABS: POTASSIUM 4.5 mmol/L (3.5-5.1)
[2023-07-08 10:37] LABS: ALBUMIN 2.4 g/dl (3.4-5.0); BLOOD UREA NITROGEN 13.4 mg/dL (7-18); CALCIUM 9.7 mg/dL (8.5-10.1); MAGNESIUM 2.2 mg/dL (1.8-2.4)
[2023-07-08 10:41] LABS: CREATININE 0.8 mg/dL (0.55-1.3)
[2023-07-08 10:42] LABS: TOT PROT 7.3 g/dl (6.4-8.2)
[2023-07-08 10:43] LABS: BILIRUBIN,TOTAL 0.3 mg/dL (0.2-1)
[2023-07-08 14:14] LABS: N-TERMINAL BNP 272.3 pg/ml (5-450)
[2023-07-08] MEDS: ACETAMINOPHEN 500 MG TABLET (FP) PO PRN (14:57)
[2023-07-09 09:28] LABS: BASO % 0.5 % (0-2.0); EOS % 3.1 % (0-4.5); HEMATOCRIT 37.1 % (32.4-45.2); HEMOGLOBIN 12.1 GM/dL (10.7-15.3); LYMPH % 33.6 % (8-40); MCH 30.1 pg (25.7-33.7); MCHC 32.6 g/dl (32.0-36.0); MEAN CELL VOLUME 92.5 fl (80-96); MEAN PLT VOLUME 9.6 fl (7.5-11.1); NEUT % 47.8 % (42.8-82.8); PLATELET COUNT 160 10^3/uL (134-434); RBC 4.01 M/mm3 (3.60-5.2); RDW 13.9 % (11.6-15.6); WHITE BLOOD COUNT 3.5 K/mm3 (4.0-10.0)
[2023-07-09 09:44] LABS: POTASSIUM 4.4 mmol/L (3.5-5.1)
[2023-07-09 09:51] LABS: CALCIUM 9.7 mg/dL (8.5-10.1)
[2023-07-09 10:01] LABS: CREATININE 0.8 mg/dL (0.55-1.3)
[2023-07-10 09:41] LABS: BASO % 0.5 % (0-2.0); EOS % 3.3 % (0-4.5); HEMATOCRIT 36.5 % (32.4-45.2); HEMOGLOBIN 11.6 GM/dL (10.7-15.3); LYMPH % 36.4 % (8-40); MCH 29.7 pg (25.7-33.7); MCHC 31.8 g/dl (32.0-36.0); MEAN CELL VOLUME 93.4 fl (80-96); MEAN PLT VOLUME 9.3 fl (7.5-11.1); MONO % 8.7 % (3.8-10.2); NEUT % 51.1 % (42.8-82.8); PLATELET COUNT 172 10^3/uL (134-434); RBC 3.91 M/mm3 (3.60-5.2); RDW 13.6 % (11.6-15.6); WHITE BLOOD COUNT 3.4 K/mm3 (4.0-10.0)
[2023-07-10 09:58] LABS: POTASSIUM 4.1 mmol/L (3.5-5.1)
[2023-07-10 10:00] LABS: CALCIUM 9.8 mg/dL (8.5-10.1)
[2023-07-10 10:03] LABS: CREATININE 0.7 mg/dL (0.55-1.3)
[2023-07-11] MEDS ORDERED: FENTANYL CITRATE/PF 50 MCG/ML VIAL ONE ×2 (13:07→15:34)
[2023-07-11] MEDS ORDERED: PROPOFOL 60 ML ONE (13:08)
[2023-07-11] MEDS ORDERED: DEXMEDETOMIDINE HCL 200 MCG/2 ML IVPB ONE (15:03)
[2023-07-11] MEDS ORDERED: BUPIVACAINE HCL/PF 0.5% (5MG/ML) 10 ML VIAL ONE (15:04)
[2023-07-11] MEDS ORDERED: BUPIVACAINE HCL/PF 0.25% (2.5MG/ML) 10 ML VIAL ONE (15:04)
[2023-07-11] MEDS: BUPIVACAINE HCL/PF 0.25% (2.5MG/ML) 10 ML VIAL IJ ONE (15:52)
[2023-07-11] MEDS: BUPIVACAINE HCL/PF 0.5% (5MG/ML) 10 ML VIAL IJ ONE (15:55)
[2023-07-11] MEDS: MINERAL OIL 25 ML OIL TP ONE (16:31)
[2023-07-11] MEDS ORDERED: ONDANSETRON 4 MG/2 ML VIAL IVPUSH PRN ×2 (16:52→17:20)
[2023-07-11] MEDS: LACTATED RINGERS SOLUTION 1,000 ML IV SCH (17:30)
[2023-07-11] MEDS: PIPERACILLIN/TAZOB 3.375 GM 3.375 GM in DEXTROSE 5%-WATER - 50 ML IVPB SCH (17:48)
[2023-07-11] MEDS: FAMOTIDINE 20 MG TABLET PO SCH (22:11)
[2023-07-12] MEDS: ACETAMINOPHEN 500 MG TABLET (FP) PO PRN (02:16)
[2023-07-12 09:14] LABS: BASO % 0.4 % (0-2.0); EOS % 2.2 % (0-4.5); HEMATOCRIT 34.8 % (32.4-45.2); HEMOGLOBIN 11.4 GM/dL (10.7-15.3); LYMPH % 25.1 % (8-40); MCH 30.2 pg (25.7-33.7); MCHC 32.7 g/dl (32.0-36.0); MEAN CELL VOLUME 92.3 fl (80-96); MEAN PLT VOLUME 9.5 fl (7.5-11.1); MONO % 8.9 % (3.8-10.2); NEUT % 63.4 % (42.8-82.8); PLATELET COUNT 182 10^3/uL (134-434); RBC 3.77 M/mm3 (3.60-5.2); WHITE BLOOD COUNT 4.1 K/mm3 (4.0-10.0)
[2023-07-12 09:29] LABS: POTASSIUM 4.4 mmol/L (3.5-5.1)
[2023-07-12 09:59] LABS: CALCIUM 9.6 mg/dL (8.5-10.1)
[2023-07-12 10:00] LABS: ALBUMIN 2.5 g/dl (3.4-5.0); BLOOD UREA NITROGEN 11.5 mg/dL (7-18); MAGNESIUM 2.1 mg/dL (1.8-2.4)
[2023-07-12 10:03] LABS: CREATININE 0.7 mg/dL (0.55-1.3)
[2023-07-12] MEDS: LACTATED RINGERS SOLUTION 1,000 ML IV SCH ×2 (10:03)
[2023-07-12] MEDS: CINACALCET HCL 30 MG TAB (FP) PO SCH (10:03)
[2023-07-12 10:05] LABS: BILIRUBIN,TOTAL 0.3 mg/dL (0.2-1); TOT PROT 7.2 g/dl (6.4-8.2)
[2023-07-12] MEDS: ENOXAPARIN NA (PORCINE) 100 MG/1 ML DISP.SYRIN SQ SCH (10:38)
[2023-07-13 09:03] LABS: BASO % 0.8 % (0-2.0); EOS % 2.2 % (0-4.5); HEMATOCRIT 37.3 % (32.4-45.2); HEMOGLOBIN 12.2 GM/dL (10.7-15.3); LYMPH % 31.8 % (8-40); MCH 30.2 pg (25.7-33.7); MCHC 32.7 g/dl (32.0-36.0); MEAN CELL VOLUME 92.6 fl (80-96); MEAN PLT VOLUME 9.3 fl (7.5-11.1); MONO % 10.1 % (3.8-10.2); NEUT % 55.1 % (42.8-82.8); PLATELET COUNT 152 10^3/uL (134-434); RBC 4.03 M/mm3 (3.60-5.2); RDW 13.4 % (11.6-15.6); WHITE BLOOD COUNT 4.2 K/mm3 (4.0-10.0)
[2023-07-13 09:23] LABS: POTASSIUM 4.7 mmol/L (3.5-5.1)
[2023-07-13 10:01] LABS: ALBUMIN 2.6 g/dl (3.4-5.0); CALCIUM 9.9 mg/dL (8.5-10.1)
[2023-07-13 10:04] LABS: CREATININE 0.7 mg/dL (0.55-1.3)
[2023-07-13 10:05] LABS: BILIRUBIN,TOTAL 0.5 mg/dL (0.2-1)
[2023-07-13 10:06] LABS: BLOOD UREA NITROGEN 12.1 mg/dL (7-18); TOT PROT 7.6 g/dl (6.4-8.2)
[2023-07-13] MEDS: oxyCODONE HCL 5 MG TABLET PO ONE (22:21)
[2023-07-14] MEDS ORDERED: ONDANSETRON 4 MG/2 ML VIAL IVPUSH PRN ×2 (07:45→11:12)
[2023-07-14] MEDS ORDERED: PROMETHAZINE HCL 25 MG/1 ML VIAL IVPB PRN ×2 (07:45→11:12)
[2023-07-14] MEDS ORDERED: traMADol HCL 50 MG TABLET PO PRN (07:47)
[2023-07-14] MEDS: LACTATED RINGERS SOLUTION 1,000 ML IV SCH ×2 (08:30→12:16)
[2023-07-14] MEDS ORDERED: DEXMEDETOMIDINE HCL 200 MCG/2 ML IVPB ONE (09:00)
[2023-07-14] MEDS ORDERED: PROPOFOL 20 ML ONE (09:01)
[2023-07-14] MEDS ORDERED: FENTANYL CITRATE/PF 50 MCG/ML VIAL ONE ×2 (09:02→10:24)
[2023-07-14] MEDS ORDERED: LIDOCAINE HCL 1%, 10 MG/ML (20ML VIAL) ONE (09:10)
[2023-07-14] MEDS ORDERED: GENTAMICIN SO4 80 MG/2 ML VIAL ONE (09:10)
[2023-07-14] MEDS: PIPERACILLIN/TAZOBACTAM 3.375 GM VIAL IVPB ONE (09:30)
[2023-07-14] MEDS: LIDOCAINE HCL 1%, 10 MG/ML (20ML VIAL) INF ONE (10:00)
[2023-07-14] MEDS ORDERED: BACITRACIN ZINC 15 GM TUBE TOPICAL OINTMENT ONE (10:24)
[2023-07-14] MEDS: BACITRACIN ZINC 15 GM TUBE TOPICAL OINTMENT TP ONE (10:31)
[2023-07-14 14:18] VITALS: RESP 18
[2023-07-14] MEDS: PIPERACILLIN/TAZOB 3.375 GM 3.375 GM in DEXTROSE 5%-WATER - 50 ML IVPB SCH (17:31)
[2023-07-14] MEDS: traMADol HCL 50 MG TABLET PO PRN (18:47)
[2023-07-14] MEDS: FAMOTIDINE 20 MG TABLET PO SCH (21:18)
[2023-07-15 07:45] LABS: HEMATOCRIT 34.6 % (32.4-45.2); HEMOGLOBIN 11.6 GM/dL (10.7-15.3); MCH 30.6 pg (25.7-33.7); MCHC 33.5 g/dl (32.0-36.0); MEAN CELL VOLUME 91.4 fl (80-96); MEAN PLT VOLUME 9.6 fl (7.5-11.1); PLATELET COUNT 163 10^3/uL (134-434); RBC 3.79 M/mm3 (3.60-5.2); RDW 13.8 % (11.6-15.6); WHITE BLOOD COUNT 4.9 K/mm3 (4.0-10.0)
[2023-07-15 08:03] LABS: POTASSIUM 5.3 mmol/L (3.5-5.1)
[2023-07-15 08:13] LABS: CALCIUM 9.8 mg/dL (8.5-10.1)
[2023-07-15 08:14] LABS: ALBUMIN 2.5 g/dl (3.4-5.0); BLOOD UREA NITROGEN 15.2 mg/dL (7-18); MAGNESIUM 2.3 mg/dL (1.8-2.4)
[2023-07-15 08:17] LABS: CREATININE 0.7 mg/dL (0.55-1.3)
[2023-07-15 08:19] LABS: BILIRUBIN,TOTAL 0.3 mg/dL (0.2-1); TOT PROT 7.4 g/dl (6.4-8.2)
[2023-07-15 09:08] LABS: ANISOCYTOSIS 0; HELMET CELLS 0; HOWELL-JOLLY BODIES 0; MACROCYTOSIS 0; OVALOCYTE 0; ROULEAU 0; SICKELED CELLS 0; TARGET CELLS 0; TEAR DROP CELLS 0; TOXIC GRANULATION 0
[2023-07-15] MEDS: CINACALCET HCL 30 MG TAB (FP) PO SCH (10:12)
[2023-07-15] MEDS: ACETAMINOPHEN 500 MG TABLET (FP) PO PRN (11:12)
[2023-07-16 08:07] LABS: POTASSIUM 4.5 mmol/L (3.5-5.1)
[2023-07-16 08:13] LABS: CALCIUM 9.7 mg/dL (8.5-10.1)
[2023-07-16 08:14] LABS: ALBUMIN 2.4 g/dl (3.4-5.0); BLOOD UREA NITROGEN 14.2 mg/dL (7-18); MAGNESIUM 2.3 mg/dL (1.8-2.4)
[2023-07-16 08:17] LABS: CREATININE 0.7 mg/dL (0.55-1.3)
[2023-07-16 08:19] LABS: BILIRUBIN,TOTAL 0.4 mg/dL (0.2-1); TOT PROT 7.2 g/dl (6.4-8.2)
[2023-07-16 08:27] LABS: BASO % 0.5 % (0-2.0); EOS % 2.6 % (0-4.5); HEMATOCRIT 33.6 % (32.4-45.2); HEMOGLOBIN 10.8 GM/dL (10.7-15.3); LYMPH % 33.6 % (8-40); MCH 29.5 pg (25.7-33.7); MCHC 32.1 g/dl (32.0-36.0); MEAN PLT VOLUME 9.7 fl (7.5-11.1); MONO % 13.3 % (3.8-10.2); PLATELET COUNT 194 10^3/uL (134-434); RBC 3.65 M/mm3 (3.60-5.2); RDW 13.6 % (11.6-15.6); WHITE BLOOD COUNT 4.8 K/mm3 (4.0-10.0)
[2023-07-16] MEDS: ENOXAPARIN NA (PORCINE) 100 MG/1 ML DISP.SYRIN SQ SCH (21:31)
[2023-07-17 08:51] LABS: BASO % 0.4 % (0-2.0); EOS % 2.5 % (0-4.5); HEMATOCRIT 31.6 % (32.4-45.2); HEMOGLOBIN 10.5 GM/dL (10.7-15.3); MCHC 33.1 g/dl (32.0-36.0); MEAN CELL VOLUME 90.7 fl (80-96); MEAN PLT VOLUME 9.7 fl (7.5-11.1); MONO % 10.3 % (3.8-10.2); NEUT % 66.8 % (42.8-82.8); PLATELET COUNT 174 10^3/uL (134-434); RBC 3.49 M/mm3 (3.60-5.2); RDW 13.8 % (11.6-15.6); WHITE BLOOD COUNT 5.4 K/mm3 (4.0-10.0)
[2023-07-17 09:06] LABS: POTASSIUM 4.5 mmol/L (3.5-5.1)
[2023-07-17 09:10] LABS: ALBUMIN 2.4 g/dl (3.4-5.0); BLOOD UREA NITROGEN 14.3 mg/dL (7-18); CALCIUM 9.3 mg/dL (8.5-10.1); MAGNESIUM 2.2 mg/dL (1.8-2.4)
[2023-07-17 09:13] LABS: CREATININE 0.7 mg/dL (0.55-1.3)
[2023-07-17 09:15] LABS: BILIRUBIN,TOTAL 0.3 mg/dL (0.2-1); TOT PROT 6.6 g/dl (6.4-8.2)
[2023-07-17] MEDS: DOCUSATE SODIUM 100 MG CAPSULE (FP) PO SCH (15:01)
[2023-07-17] MEDS: POLYETHYLENE GLYCOL (HEALTHYLAX) 3350 17 GM PACKET PO SCH (15:02)
[2023-07-17] MEDS ORDERED: POLYETHYLENE GLYCOL (HEALTHYLAX) 3350 17 GM PACKET PO PRN (18:12)
[2023-07-17] MEDS ORDERED: DOCUSATE SODIUM 100 MG CAPSULE (FP) PO PRN (18:13)
[2023-07-18 08:38] LABS: BASO % 0.9 % (0-2.0); EOS % 2.7 % (0-4.5); HEMATOCRIT 32.8 % (32.4-45.2); HEMOGLOBIN 10.6 GM/dL (10.7-15.3); LYMPH % 24.5 % (8-40); MCH 29.5 pg (25.7-33.7); MCHC 32.3 g/dl (32.0-36.0); MEAN CELL VOLUME 91.5 fl (80-96); MEAN PLT VOLUME 9.6 fl (7.5-11.1); MONO % 12.7 % (3.8-10.2); NEUT % 59.2 % (42.8-82.8); PLATELET COUNT 208 10^3/uL (134-434); RBC 3.59 M/mm3 (3.60-5.2); RDW 13.7 % (11.6-15.6); WHITE BLOOD COUNT 4.7 K/mm3 (4.0-10.0)
[2023-07-18 08:42] LABS: POTASSIUM 4.3 mmol/L (3.5-5.1)
[2023-07-18 08:50] LABS: CALCIUM 9.6 mg/dL (8.5-10.1)
[2023-07-18 08:51] LABS: ALBUMIN 2.3 g/dl (3.4-5.0); BLOOD UREA NITROGEN 15.3 mg/dL (7-18); MAGNESIUM 2.3 mg/dL (1.8-2.4)
[2023-07-18 08:54] LABS: CREATININE 0.7 mg/dL (0.55-1.3)
[2023-07-18 08:55] LABS: TOT PROT 6.6 g/dl (6.4-8.2)
[2023-07-18 08:56] LABS: BILIRUBIN,TOTAL 0.3 mg/dL (0.2-1)
[2023-07-19 09:14] VITALS: BP 132/70; PULSE 80; TEMP 98.4
== END 2023-07-19 11:52 | disposition home health service (06) | DRG 574 ==
LOC: JER 12:53 → JERBED 17:16 → OBSVTOIN 17:55 → J8W 22:47
PROVIDERS: ADMIT Internal Medicine; ATTEND Nurse Practitioner Acute Care
PROC: 0JBP0ZZ Excision of Left Lower Leg Subcutaneous Tissue and Fascia, Open Approach (ICD-10-PCS; 2023-07-11)
PROC: 0HRLX74 Replacement of Left Lower Leg Skin with Autologous Tissue Substitute, Partial Thickness, External Approach (ICD-10-PCS; principal; 2023-07-11 15:30)
PROC: 0JCP0ZZ Extirpation of Matter from Left Lower Leg Subcutaneous Tissue and Fascia, Open Approach (ICD-10-PCS; 2023-07-14)
PROC: 0HBJXZZ Excision of Left Upper Leg Skin, External Approach (ICD-10-PCS; 2023-07-14)
PROC: 05HY33Z Insertion of Infusion Device into Upper Vein, Percutaneous Approach (ICD-10-PCS; 2023-07-18)
DX: L97.929 Non-pressure chronic ulcer of unspecified part of left lower leg with unspecified severity (principal); I50.32 Chronic diastolic (congestive) heart failure; M86.662 Other chronic osteomyelitis, left tibia and fibula; L76.32 Postprocedural hematoma of skin and subcutaneous tissue following other procedure; Y83.9 Surgical procedure, unspecified as the cause of abnormal reaction of the patient, or of later complication, without mention of misadventure at the time of the procedure; I83.029 Varicose veins of left lower extremity with ulcer of unspecified site; I48.91 Unspecified atrial fibrillation; I11.0 Hypertensive heart disease with heart failure; E21.3 Hyperparathyroidism, unspecified; E66.9 Obesity, unspecified; Z68.35 Body mass index [BMI] 35.0-35.9, adult; E78.5 Hyperlipidemia, unspecified; G47.33 Obstructive sleep apnea (adult) (pediatric)
CPT/HCPCS: 36415; 36569; 73590-TC-LT-FY; 80048; 80053; 83735; 83880; 84100; 85025; 85027; 85610; 85651; 85730; 86140; 86850; 86900; 86901; 87040; 87070; 87186; 87205; 88304-TC; 88305-TC; 93005; 93010; 93306-TC; 94760; 97116-GP; 97161-GP; 99285-25; G0378; G0463-25; Q4121